=== PATIENT | female | born 1990 ===

== ENCOUNTER 2017-04-19 12:37 | Observation (INO) ==
[2017-04-19] MEDS ORDERED: SODIUM CHLORIDE 0.9% 1,000 ML IV STA (12:48)
--- NOTE | 2017-04-19 13:44 | Ultrasound Report ---
History: Vaginal bleeding. Date: 04/19/2017 Study: Obstetrical ultrasound greater than 14 weeks Comparison exam: No previous Verbal report was given to Dr. Kuo by telephone at approximately 1:30 PM. Real-time ultrasound images are captured and archived. There is a single intrauterine fetus in vertex presentation with heart rate of 149 bpm. There is a low-lying placenta which is posterior. The cervical canal is open and measures roughly 16 mm. There is a 6.2 x 3.2 area of echogenicity in the vaginal vault which presumably represents a large area of clot within the vaginal vault. This area of echogenicity is isoechoic to the placenta, though there is no definite continuity between the placenta and this vaginal echogenicity. There is a normal amount of amniotic fluid with a largest pocket of 42 mm. spine, four-chamber heart view, stomach bubble, kidneys, and cord insertion site are identified and appear normal. The urinary bladder is not demonstrated. There are no masses of the maternal myometrium. The maternal ovaries are not seen, though there is no mass in the maternal adnexal area. BPD 33 mm or 16 weeks 1 days Head circumference 124 mm or 16 weeks 2 days Abdominal circumference 99 mm are 16 weeks 0 days Femur length 18 mm or 15 weeks 2 days The fetus measures in the 77.6 percentile Impression: Single intrauterine fetus in vertex presentation with an ultrasound gestational age of 15 weeks 5 days +/- 8 days, DENNIS October 06, 2017, and EFW 132 g +/- 19 g. motion and cardiac activity are noted during real-time sonography Incompetent cervix. Area of focal increased echogenicity in the vaginal vault which may represent large area of clot Low-lying placenta PROCEDURE INTERPRETED AT [facility] DEPARTMENT OF RADIOLOGY Final Report Signed by: Dr. Sherrie Patterson
[2017-04-19 13:50] LABS: Eosinophils % 0.1 % (0.00-10.9); Hematocrit 24.2 VOL% (35.7-47.0); Hemoglobin 8.4 GM/DL (12.0-16.0); Immature Granulocytes % 0.7 %; Immature Granulocytes Absolute 0.06 #; Lymphocytes # 0.8 10*3/uL (1.4-4.0); Lymphocytes % 9.2 % (21.3-54.2); Mean Corpuscular HGB Conc 34.7 GM/DL (32-36); Mean Corpuscular Hemoglobin 32 PG (27-34); Mean Corpuscular Volume 93.1 FL (87-102); Mean Platelet Volume 8.9 FL (9.6-12.0); Monocytes # 0.6 10*3/uL (0.11-0.8); Monocytes % 6.7 % (1.7-12.7); Neutrophils # 6.9 10*3/uL (1.4-7.4); Neutrophils % 83.3 % (38.7-73.9); Platelet Count 170 T/CUMM (130-400); Red Cell Distribution Width 13.8 % (9.3-17.3); White Blood Count 8.3 T/CUMM (4-12)
--- NOTE | 2017-04-19 13:52 | Emergency Department Note ---
Karl Howell Brittany, am scribing for, and in the presence of, George Kuo MD 12:52. Shiela Howell Thomas, MD, personally performed the services described in this documentation, ascribed by Diane Barajas in my presence, and it is both accurate and complete 351 . Arrival - Arrival Stated Complaint: VAGINAL BLEEDING Mode of Arrival: Ambulatory Limitations: No Limitations Source: Patient, RN Notes Reviewed Time Seen by Provider: 04/19/17 12:42 - History of Present Illness HPI Narrative: Patient is a 26 y/o female presenting to the ED with c/o vaginal bleeding which onset this morning. Patient reports that she has had some associated chills, suprapubic abdominal pain, nausea, diarrhea, and urinary frequency. She describes noticing this bleeding most often upon urination, but on exam patient has dried blood splatters to bilateral lower extremities. Patient currently is 3 months gestation. She denies having had any cough, fever, chest pain, runny nose, rash, or dysuria. Patient denies sustaining any recent injury or trauma to the vaginal region. She denies having any other complaints. Nothing improves/ worsens Sx. Onset (ago): hour(s) Consistency: constant Allergies/Adverse Reactions: Allergies Allergy/AdvReac Type Severity Reaction Status Date / Time No Known Allergies Allergy Verified 07/15/15 22:15 Home Medications: Home Medications Medication Instructions Recorded Confirmed Type No122/Iron/Folic Acid 1 each PO QPM 04/19/17 04/19/17 History [ Multi Tablet] Review of System - Review of System 12 point system: reviewed and no additional remarkable complaints except as stated - Review of System Constitutional: Present: chills. Absent: fever Cardiovascular: Absent: chest pain, dyspnea on exertion Gastrointestinal: Present: abdominal pain, nausea, diarrhea. Absent: vomiting Genitourinary female: Present: frequency, other (vaginal bleeding). Absent: dysuria Skin: Absent: rash, change in color Medical,Surgical,& Family Hx - Medical History Reproductive: History of: Sexually Transmitted Disorders (TRICH) No history of: Ectopic , Complication - Surgical History Reproductive Surgeries: Patient denies;: Section, Hysterectomy, Tubal Ligation - Family History Family History: Reports;: Family Diabetes Denies;: Family Anesthesia Reaction, Family Cancer, Family Heart Disease, Family Hypertension, Family Psychiatric Problems, Family Stroke - Social History Smoking Status: Never smoker Exam Vital Signs: Vital Signs Temperature 98.6 F 04/19/17 12:38 Pulse Rate 86 04/19/17 12:38 Respiratory Rate 18 04/19/17 12:38 Blood Pressure 106/42 04/19/17 12:38 O2 Sat by Pulse Oximetry 100 04/19/17 13:02 - General General appearance: alert, in no apparent distress - Head Head exam: Present: atraumatic, normocephalic - Eye Eye exam: Present: EOMI. Absent: conjunctival injection, periorbital swelling, periorbital tenderness - ENT ENT exam: Present: mucous membranes moist - Neck Neck exam: Present: trachea midline - Chest Chest inspection: Present: symmetric chest wall rise - Respiratory Respiratory exam: Present: normal lung sounds bilaterally. Absent: respiratory distress - Cardiovascular Cardiovascular exam: Present: regular rate, normal rhythm, normal heart sounds - Abdominal Exam Abdominal exam: Present: soft, normal bowel sounds. Absent: distention, tenderness, guarding - Extremities Exam Extremities exam: Present: normal capillary refill. Absent: pedal edema, calf tenderness - Back Exam Back exam: Absent: CVA tenderness (R), CVA tenderness (L) - Neurological Exam Neurological exam: Present: alert, oriented X3. Absent: motor sensory deficit - Psychiatric Psychiatric exam: Present: normal affect, normal mood - Skin Skin exam: Present: warm, dry, normal color, other (dried blood noted to bilateral lower extremeties) Course - Consultations Consultation #1: Dr. Rutledge will admit patient for observation. She will come to the ER and see the patient. Time: 14:52 Results - Labs CBC & BMP: 04/19/17 13:39 04/19/17 13:39 Lab Results: I have reviewed the patients labs Labs: Laboratory Tests 04/19/17 13:39 WBC 8.3 RBC 2.60 L Hgb 8.4 L Hct 24.2 L Plt Count 170 MPV 8.9 L Neut % (Auto) 83.3 H Lymph % (Auto) 9.2 L Lymph # (Auto) 0.8 L Laboratory Tests 04/19/17 13:39 Serum , Qual Positive Laboratory Tests 04/19/17 13:39 INR 1.0 PT Patient/Control Mix 10.9 Circ Anticoag PTT 28.6 Laboratory Tests 04/19/17 13:39 Sodium 139 Potassium 4.2 Chloride 110 H Carbon Dioxide 23 BUN 4 L Creatinine 0.40 L Glucose 93 Calcium 7.2 L ALT 12 L Alkaline Phosphatase 30 L Total Protein 5.3 L Albumin 2.5 L Albumin/Globulin Ratio 0.8 L Laboratory Tests 04/19/17 13:39 Blood Type O POSITIVE Antibody Screen Negative - Diagnostic Findings Procedure: Ultrasound: report reviewed by me ( US: Single intrauterine fetus in vertex presentation with an ultrasound gestational age of 15 weeks 5 days +/- 8 days, DENNIS October 06, 2017, and EFW 132 g +/- 19 g. motion and cardiac activity are noted during real-time sonography. Incompetent cervix. Area of focal increased echogenicity in the vaginal vault which may represent large area of clot. Low-lying placenta.) Disposition Clinical Impression: Vaginal bleeding before 22 weeks gestation, Second trimester , Anemia , Incompetence of cervix uteri Case discussed with: patient, other Disposition: Still a Patient Condition: Stable Time of Disposition: 14:57
[2017-04-19 14:07] LABS: PT Patient Result 10.9 SECS; Partial Thromboplastin Time 28.6 SECS (0-40)
[2017-04-19 14:13] LABS: Albumin 2.5 G/DL (3.4-5.0); Bilirubin,Total 0.6 MG/DL (0.2-1.0); Calcium 7.2 MG/DL (8.5-10.1); Osmolality,Calculated 273.5 MOS/KG (273-304); Potassium 4.2 MMOL/L (3.5-5.1); Total Protein 5.3 G/DL (6.4-8.3)
[2017-04-19 14:56] LABS: Apearance,Urine Slightly Hazy (Clear); Bilirubin,Urine Negative (Negative); Blood, Urine Negative (Negative); Glucose,Urine (UA) Negative (Negative); Hyaline Casts,Urine 1 /LPF (0-3); Ketones,Urine Negative (Negative); Nitrite,Urine Negative (Negative); Protein,Urine 30 MG/DL; RBC,Urine <1 /HPF (0-4); Squamous Epithelial Cell,Urine Occasional /HPF (0-10); Urine Color Yellow (Yellow); WBC,Urine 1 /HPF (0-6)
[2017-04-19] MEDS ORDERED: ONDANSETRON 4 MG/2 ML VIAL IV PRN (16:48)
[2017-04-19] MEDS ORDERED: SODIUM CHLORIDE 0.9% 250 ML IV PRN (16:53)
[2017-04-19] MEDS: ACETAMINOPHEN/CODEINE 300-30 MG TABLET PO PRN (17:00)
[2017-04-19] MEDS: MEPERIDINE 50 MG/1 ML VIAL IV PRN (20:59)
[2017-04-19] MEDS: LACTATED RINGERS 1,000 ML IV SCH (21:05)
[2017-04-19 22:51] LABS: Hematocrit 25.8 VOL% (35.7-47.0); Hemoglobin 9.2 GM/DL (12.0-16.0)
[2017-04-20] MEDS: MEPERIDINE 50 MG/1 ML VIAL IV PRN ×4 (03:42→21:12)
[2017-04-20 05:12] LABS: Basophils % 0.2 % (0.0-0.8); Eosinophils # 0.1 10*3/uL (0.0-0.87); Eosinophils % 1.2 % (0.00-10.9); Hematocrit 25.4 VOL% (35.7-47.0); Hemoglobin 8.7 GM/DL (12.0-16.0); Immature Granulocytes % 0.4 %; Immature Granulocytes Absolute 0.02 #; Lymphocytes # 1.1 10*3/uL (1.4-4.0); Lymphocytes % 22.7 % (21.3-54.2); Mean Corpuscular HGB Conc 34.3 GM/DL (32-36); Mean Corpuscular Hemoglobin 32 PG (27-34); Mean Platelet Volume 8.6 FL (9.6-12.0); Monocytes # 0.5 10*3/uL (0.11-0.8); Monocytes % 9.7 % (1.7-12.7); Neutrophils # 3.2 10*3/uL (1.4-7.4); Neutrophils % 65.8 % (38.7-73.9); Platelet Count 132 T/CUMM (130-400); Red Blood Count 2.76 MC/CUMM (3.8-5.5); Red Cell Distribution Width 15.1 % (9.3-17.3); White Blood Count 4.9 T/CUMM (4-12)
--- NOTE | 2017-04-20 10:27 | Ultrasound Report ---
History: Vaginal bleeding Date: 04/20/2017 Study: Obstetrical ultrasound follow-up Comparison exam: 04/19/2017 Real-time ultrasound images are captured and archived. There is a single intrauterine fetus in vertex presentation with a heart rate of 161 bpm. The placenta is posterior and low-lying/marginal previa by translabial measurements. The cervical canal is closed. The cervix measures 1.8 cm on today's study. The large area of increased echogenicity in the vaginal vault noted on the previous study, presumably clot, is not seen on the current study. There is a normal amount of amniotic fluid with a largest vertical pocket of 40 mm. The maternal ovaries are not demonstrated. anatomic survey was not performed. Impression: Single intrauterine fetus in vertex presentation with cardiac activity. The placenta is posterior and low-lying/marginal previa. The maternal cervix is closed and measures 1.8 cm. The large echogenic structure in the vaginal vault seen on the previous study, presumably thrombus, is no longer seen. PROCEDURE INTERPRETED AT [facility] DEPARTMENT OF RADIOLOGY Final Report Signed by: Dr. Sherrie Patterson
--- NOTE | 2017-04-20 10:59 | History & Physical Report ---
Assessment and Plan (1) Vaginal bleeding before 22 weeks gestation Status: Acute Assessment and plan: Bedrest, replaced blood loss, comfort measures, risks were thoroughly discussed with this patient as well. And will have follow-up ultrasounds as needed. Once the bleeding is stopped we will then do a vaginal examination to assess whether or not this patient needs to have a cerclage placement. Current Visit: Yes History of Present Illness Chief complaint: Vaginal bleeding History of present illness: Ms. Gerardo is a 26 year old female Patient admitted with heavy vaginal bleeding passing large clots, no abdominal pain or discomfort at this particular time. heart tones were present. Ultrasound was obtained demonstrated intrauterine with heart rate greater than 140, estimated gestational age of 16 weeks and 2 days. This patient will be admitted to H&H will be obtained ultrasound repeated in the a.m. Will place to complete bedrest. Risks and benefits were thoroughly discussed with this patient about the possible of an impending miscarriage versus placenta abruption, placenta previa, or blood leading after intimacy. Home Medications Medication Instructions Recorded Confirmed Type Ferrous Sulfate 1 tablet PO BID 04/19/17 04/19/17 History No122/Iron/Folic Acid 1 each PO QPM 04/19/17 04/19/17 History [ Multi Tablet] Allergies Allergy/AdvReac Type Severity Reaction Status Date / Time No Known Allergies Allergy Verified 07/15/15 22:15 Medical,Surgical,& Family Hx - Medical History Reproductive: History of: Sexually Transmitted Disorders (TRICH) No history of: Ectopic , Complication - Surgical History Reproductive Surgeries: Patient denies;: Section, Hysterectomy, Tubal Ligation - Family History Family History: Reports;: Family Diabetes Denies;: Family Anesthesia Reaction, Family Cancer, Family Heart Disease, Family Hypertension, Family Psychiatric Problems, Family Stroke - Social History Smoking Status: Never smoker Frequency of Alcohol Use: None Type of Drug Use: None Exam - Constitutional Vitals: Period Temp Pulse Resp BP Sys/Mckeon Pulse Ox Last 24 Hr 96.8 F-98.6 F 59-86 16-20 101-134/42-86 97-100 General appearance: mild distress - Head Head exam: Present: normal inspection - Eye Eye exam: Present: EOMI Pupils: Present: FÉLIX - ENT ENT exam: Present: normal exam - Neck Neck exam: Present: normal inspection - Respiratory Respiratory exam: Present: clear to auscultation bilaterally - Cardiovascular Cardiovascular exam: Present: regular rate and rhythm - GI/Abdominal GI/Abdominal exam: Present: normal bowel sounds, soft - Extremities Exam Extremities exam: Present: normal inspection - Back Exam Back exam: Present: normal inspection - Neurological Exam Neurological exam: Present: alert, oriented X3 - Psychiatric Psychiatric exam: Present: normal affect - Skin Skin exam: Present: normal color Results - Labs CBC & BMP: 04/20/17 05:00 04/19/17 13:39
[2017-04-20] MEDS: LACTATED RINGERS 1,000 ML IV SCH ×3 (13:45→21:15)
[2017-04-20 14:01] LABS: Hematocrit 28.7 VOL% (35.7-47.0); Hemoglobin 10.3 GM/DL (12.0-16.0)
[2017-04-21] MEDS: MEPERIDINE 50 MG/1 ML VIAL IV PRN ×2 (03:15→08:48)
[2017-04-21] MEDS: LACTATED RINGERS 1,000 ML IV SCH ×3 (04:45→14:37)
--- NOTE | 2017-04-21 13:53 | Progress Note ---
Assessment and Plan (1) Vaginal bleeding before 22 weeks gestation Status: Acute Assessment and plan: Bedrest, replaced blood loss, comfort measures, risks were thoroughly discussed with this patient as well. And will have follow-up ultrasounds as needed. Once the bleeding is stopped we will then do a vaginal examination to assess whether or not this patient needs to have a cerclage placement. Current Visit: Yes Family Medicine PN Sub Interval history: Niurka Valadez the patient was admitted over the last several days with vaginal bleeding. Ultrasound was obtained in the emergency room to stem is demonstrated intrauterine at approximately 16 weeks gestation. The cervix demonstrated a large clot in the vaginal vault. Repeat ultrasound after receiving 2 units of packed RBCs demonstrated no evidence of a clot in the vaginal vault and on all appearance of cervix appeared to be closed. heart tones again were obtained. Patient presently is only complaining of abdominal cramping. Pelvic exam was performed uterus is present with nontender but the cervix is long thick and closed. I have read recommended this patient to be off bed rest ambulate observe her vaginal bleeding and if the bleeding is minimal then this patient should be discharged. These were discussed with this patient she is in full agreement Exam (Progress Note) - Constitutional Vitals: Period Temp Pulse Resp BP Sys/Mckeon Pulse Ox Last 24 Hr 96.5 F-98.6 F 71-81 16-20 113-134/66-87 97-99 Results - Labs CBC & BMP: 04/20/17 13:54 04/19/17 13:39 Specialty Discharge - Follow Up or Referrals Follow up with: Marylu Ruvalcaba MD [Physician] -
[2017-04-21] MEDS ORDERED: cefTRIAXone 1,000 MG in SODIUM CHLORIDE 0.9% 100 ML IV ONE (13:57)
[2017-04-21] MEDS: ACETAMINOPHEN/CODEINE 300-30 MG TABLET PO PRN ×2 (14:07→20:21)
[2017-04-22] MEDS: ACETAMINOPHEN/CODEINE 300-30 MG TABLET PO PRN ×2 (02:09→09:26)
[2017-04-22 11:08] VITALS: BP 115/78
--- NOTE | 2017-04-22 12:35 | Discharge Summary ---
Hospital Course - Hospital Course Hospital Course: Subjectively Patient is doing very well, no vaginal bleeding, no pelvic pain, positive heart tones noted Vital signs are stable afebrile Abdomen soft and nontender Perineum is dry no active bleeding noted Pelvic exam was performed on 21 April cervix was long thick and closed. Extremities well with no limits neurologic grossly intact Assessment plan Early second trimester bleeding apparently at this point time no active bleeding. This patient received 2 units of packed RBCs and is stable We will be discharged with ferrous sulfate and recommend bedrest Diagnosis - Discharge Diagnosis (1) Vaginal bleeding before 22 weeks gestation Status: Acute Specialty Discharge - Follow Up or Referrals Follow up with: Marylu Ruvalcaba MD [Physician] - Discharge Plan - Discharge Data Condition at Discharge: Stable Discharge Diet: advance to your usual diet Activity: increase activity as tolerated Hygiene: no restrictions Weight Bearing at Discharge: partial weight bearing Driving: no restrictions Contact your physician if you experience:: fever over 101, Bleeding - Discharge Medications New Acetamin/Codeine 300-30 Tab [Tylenol/Codeine #3] 2 tablet PO Q6H PRN #20 tablet PRN Reason: Pain Mild (1-3) Continue Ferrous Sulfate 1 tablet PO BID #60 No Action No122/Iron/Folic Acid [ Multi Tablet] 1 each PO QPM - Follow Up or Referral Follow Up: Marylu Ruvalcaba MD [Physician] - 2 Weeks ([facility]) - Forms/Instructions Instructions: Threatened Miscarriage (DC), Incompetent Cervix (GEN) Exam - Constitutional Vitals: Period Temp Pulse Resp BP Sys/Mckeon Pulse Ox Last 24 Hr 97.1 F-98.7 F 66-76 15-20 106-121/68-78 96-99 DS: Provider Date of admission: 04/19/17 14:55 Primary care physician: Myrtle Baltazar MD Attending physician on admission: Marylu Ruvalcaba MD Discharging clinician: Marylu Ruvalcaba MD
== END 2017-04-22 16:05 | disposition home or self-care (01) ==
LOC: EDBD → EDUNIT# → N.ED 12:37 → N.EDINP 14:55 → INTOOBSV 14:55 → N.OB 15:37
PROVIDERS: ADMIT Obstetrics & Gynecology; ATTEND Obstetrics & Gynecology

== ENCOUNTER 2017-05-17 02:27 | Inpatient (IN) ==
--- NOTE | 2017-05-17 02:38 | Emergency Department Note ---
Arrival - Arrival Chief Complaint: Urogenital - Female Stated Complaint: further eval vaginal bleeding during Time Seen by Provider: 05/17/17 02:35 - History of Present Illness HPI Narrative: This is a 26-year-old female of descent who presents from [facility] with vaginal bleeding for the past 2 weeks was heavy this evening. Expected date of confinement is October 10, 2017. She is . Ultrasound done in the emergency department reveals heart activity with movements. She is noted to have placenta previa. Cervical length is 3 cm. She is not actively bleeding in the emergency department. Her blood pressure is 106/61. The pulse is 67. Allergies/Adverse Reactions: Allergies Allergy/AdvReac Type Severity Reaction Status Date / Time No Known Allergies Allergy Verified 07/15/15 22:15 Home Medications: Home Medications Medication Instructions Recorded Confirmed Type No122/Iron/Folic Acid 1 each PO QPM 04/19/17 05/17/17 History [ Multi Tablet] Ferrous Sulfate 1 tablet PO BID #60 04/22/17 05/17/17 Rx Review of System - Review of System Constitutional: Absent: fever, night sweats, weakness Eyes: Absent: redness, vision change Respiratory: Absent: respiratory distress, wheezing Cardiovascular: Absent: dyspnea on exertion, orthopnea Gastrointestinal: Absent: diarrhea, constipation, hematemesis, melena Genitourinary female: Absent: dysuria, genital lesions Musculoskeletal: Absent: joint swelling, lower back pain, leg pain, neck pain Skin: Absent: change in color, change in hair/nails, pruritus Neurological: Absent: numbness Psychiatric: Absent: anxiety, depression Endocrine: Absent: heat intolerance, polydipsia, polyuria Hematological/Lymphatic: Absent: easy bruising, lymphadenopathy Allergic/Immunologic: Absent: urticaria, itchy eyes Medical,Surgical,& Family Hx - Medical History Reproductive: History of: Sexually Transmitted Disorders (TRICH) No history of: Ectopic , Complication - Surgical History Reproductive Surgeries: Patient denies;: Section, Hysterectomy, Tubal Ligation - Family History Family History: Reports;: Family Diabetes Denies;: Family Anesthesia Reaction, Family Cancer, Family Heart Disease, Family Hypertension, Family Psychiatric Problems, Family Stroke - Social History Smoking Status: Never smoker Exam Vital Signs: Vital Signs Temperature 98.7 F 05/17/17 02:29 Pulse Rate 63 05/17/17 04:15 Respiratory Rate 18 10/07/17 04:15 Blood Pressure 114/63 05/17/17 04:15 O2 Sat by Pulse Oximetry 100 05/17/17 04:15 - General General appearance: alert - Eye Eye exam: Present: PERRL, EOMI - ENT ENT exam: Present: normal exam - Neck Neck exam: Present: normal inspection, full ROM - Chest Chest inspection: Present: normal inspection - Respiratory Respiratory exam: Present: normal lung sounds bilaterally - Cardiovascular Cardiovascular exam: Present: regular rate, normal rhythm - Abdominal Exam Abdominal exam: Present: soft, normal bowel sounds - Extremities Exam Extremities exam: Present: normal inspection, full ROM - Back Exam Back exam: Present: normal inspection, full ROM - Neurological Exam Neurological exam: Present: alert, oriented X3, CN II-XII intact - Psychiatric Psychiatric exam: Present: normal affect, normal mood - Skin Skin exam: Present: warm, dry Course Course Narrative: The case was discussed with Dr. Ruvalcaba the ROOFING TECHNICIAN doctor with the ultrasound findings that show placenta previa and a 2 g drop in her hemoglobin. Dr. Ruvalcaba agreed to admit the patient to the hospital for possible blood transfusion and to monitor the vaginal bleeding. Results - Labs CBC & BMP: 05/17/17 02:44 05/17/17 02:44 Disposition Clinical Impression: Placenta previa antepartum in second trimester Disposition: Still a Patient
[2017-05-17 02:58] LABS: Basophils % 0.3 % (0.0-0.8); Eosinophils # 0.1 10*3/uL (0.0-0.87); Eosinophils % 1.1 % (0.00-10.9); Hematocrit 21.6 VOL% (35.7-47.0); Hemoglobin 7.4 GM/DL (12.0-16.0); Immature Granulocytes % 0.4 %; Immature Granulocytes Absolute 0.03 #; Lymphocytes # 2.3 10*3/uL (1.4-4.0); Lymphocytes % 30.2 % (21.3-54.2); Mean Corpuscular HGB Conc 34.3 GM/DL (32-36); Mean Corpuscular Hemoglobin 32 PG (27-34); Mean Corpuscular Volume 92.3 FL (87-102); Mean Platelet Volume 9.1 FL (9.6-12.0); Monocytes # 0.5 10*3/uL (0.11-0.8); Monocytes % 6.9 % (1.7-12.7); Neutrophils # 4.6 10*3/uL (1.4-7.4); Neutrophils % 61.1 % (38.7-73.9); Platelet Count 235 T/CUMM (130-400); Red Blood Count 2.34 MC/CUMM (3.8-5.5); Red Cell Distribution Width 13.4 % (9.3-17.3); White Blood Count 7.5 T/CUMM (4-12)
[2017-05-17 03:20] LABS: Alanine Aminotransferase 11 U/L (13-56); Albumin 2.5 G/DL (3.4-5.0); Alkaline Phosphatase 45 U/L (45-117); Aspartate Amino Transferase 7 U/L (0-37); Bilirubin,Total < 0.39 MG/DL (0.2-1.0); Blood Urea Nitrogen 7 MG/DL (7-18); Calcium 7.9 MG/DL (8.5-10.1); Glucose 96 MG/DL (74-106); Osmolality,Calculated 280.1 MOS/KG (273-304); Potassium 3.2 MMOL/L (3.5-5.1); Sodium 142 MMOL/L (136-145); Total Protein 5.4 G/DL (6.4-8.3)
[2017-05-17] MEDS ORDERED: ONDANSETRON 4 MG/2 ML VIAL IV PRN (03:35)
[2017-05-17] MEDS ORDERED: DEXTROSE 5% LACTATED RINGERS 1,000 ML IV SCH (04:00)
[2017-05-17] MEDS ORDERED: SODIUM CHLORIDE 0.9% 250 ML IV PRN (04:51)
[2017-05-17] MEDS ORDERED: ACETAMINOPHEN/CODEINE 300-30 MG TABLET ONE (04:54)
[2017-05-17] MEDS: ACETAMINOPHEN/CODEINE 300-30 MG TABLET PO PRN ×4 (05:06→23:13)
[2017-05-17 06:17] LABS: Basophils % 0.1 % (0.0-0.8); Eosinophils # 0.1 10*3/uL (0.0-0.87); Eosinophils % 1.2 % (0.00-10.9); Hematocrit 21.5 VOL% (35.7-47.0); Hemoglobin 7.1 GM/DL (12.0-16.0); Immature Granulocytes % 0.4 %; Immature Granulocytes Absolute 0.03 #; Lymphocytes # 2.4 10*3/uL (1.4-4.0); Lymphocytes % 36.2 % (21.3-54.2); Mean Corpuscular Hemoglobin 31 PG (27-34); Mean Corpuscular Volume 92.7 FL (87-102); Mean Platelet Volume 9.9 FL (9.6-12.0); Monocytes # 0.5 10*3/uL (0.11-0.8); Monocytes % 6.7 % (1.7-12.7); Neutrophils # 3.7 10*3/uL (1.4-7.4); Neutrophils % 55.4 % (38.7-73.9); Platelet Count 230 T/CUMM (130-400); Red Blood Count 2.32 MC/CUMM (3.8-5.5); Red Cell Distribution Width 13.7 % (9.3-17.3); White Blood Count 6.7 T/CUMM (4-12)
[2017-05-17 06:31] LABS: Apearance,Urine CLEAR (Clear); Bacteria,Urine Occasional /HPF (Few); Bilirubin,Urine Negative (Negative); Blood, Urine Small mg/dL (Negative); Glucose,Urine (UA) 50 mg/dL (Negative); Ketones,Urine Negative (Negative); Mucus,Urine Occasional /LPF (Occasional); Nitrite,Urine Negative (Negative); Protein,Urine 30 MG/DL; RBC,Urine 41 /HPF (0-4); Squamous Epithelial Cell,Urine Occasional /HPF (0-10); Urine Color Yellow (Yellow); Urine Specific Gravity 1.025 (1.001-1.035); WBC,Urine 3 /HPF (0-6)
--- NOTE | 2017-05-17 08:26 | Ultrasound Report ---
Exam: US OB >= 14 weeks fetus Indication: Vaginal bleeding Comparison: April 20, 2017 Findings: Intrauterine gestation in the breech position. Posterior placenta. Three-vessel cord BPD: 19 weeks 3 days Head circumference: 19 weeks 1 day Abdominal circumference: 19 weeks 2 days Femur length: 18 weeks 4 days Amniotic fluid index: Normal at 12.4 cm Estimated weight: 270 g Cervical length: 3.0 cm heart rate: 1 48 bpm structures: No gross abnormality. Unremarkable appearance of the spine, kidneys and bladder. Four-chamber heart. Maternal ovaries not visualized Ultrasound images were captured and stored. Impression: 1. Expected progression of viable intrauterine gestation with estimated age of 18 weeks 5 days with expected delivery date of October 13, 2017. PROCEDURE INTERPRETED AT [facility] DEPARTMENT OF RADIOLOGY Final Report Signed by: Dylan Ramirez MD
--- NOTE | 2017-05-17 08:27 | OB/GYN History & Physical ---
History of Present Illness Chief complaint: Questionable vaginal bleed History of present illness: Ms. Gerardo is a 26 year old female 26-year-old 5 para 4 EDC is October 14, 2017, approximately 19 weeks and 1 day gestation. Who presented from [facility] with which was "" excessive vaginal bleeding and pelvic pain. Patient was evaluated and was determined to have tachycardia and also a low hemoglobin and hematocrit. She was then transferred by ambulance to [facility] and be evaluated in emergency room. Upon arrival in the emergency room there was no evidence of vaginal bleeding or severe abdominal pain. Ultrasound was obtained demonstrated a viable intra-uterine with a documented placenta previa. Patient received IV fluids, typed and crossed for 2 units packed RBCs and will planning on to transfuse this patient with each unit over period of time. Being evaluated for several hours is no evidence of any vaginal bleeding , and also no excessive abdominal pain or discomfort. Home Medications Medication Instructions Recorded Confirmed Type No122/Iron/Folic Acid 1 each PO QPM 04/19/17 05/17/17 History [ Multi Tablet] Ferrous Sulfate 1 tablet PO BID #60 04/22/17 05/17/17 Rx Allergies Allergy/AdvReac Type Severity Reaction Status Date / Time No Known Allergies Allergy Verified 07/15/15 22:15 Medical,Surgical,& Family Hx - Medical History Reproductive: History of: Sexually Transmitted Disorders (TRICH) No history of: Ectopic , Complication - Surgical History Reproductive Surgeries: Patient denies;: Section, Hysterectomy, Tubal Ligation - Family History Family History: Reports;: Family Diabetes Denies;: Family Anesthesia Reaction, Family Cancer, Family Heart Disease, Family Hypertension, Family Psychiatric Problems, Family Stroke - Social History Smoking Status: Never smoker Frequency of Alcohol Use: None 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 of 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: 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 - Constitutional Vitals: Vital Signs Temp Pulse Pulse Resp BP BP BP 05/17/17 08:00 97.2 F L 58 L 16 96/61 05/17/17 07:56 97.2 F L 58 L 16 96/61 05/17/17 07:26 97.0 F L 56 L 16 91/52 05/17/17 07:21 96.9 F L 57 L 18 94/55 05/17/17 07:16 97 F L 61 16 95/52 05/17/17 07:10 97.2 F L 58 L 16 98/63 05/17/17 06:56 18 05/17/17 06:00 18 05/17/17 04:30 97.3 F L 70 16 110/63 05/17/17 04:15 63 18 114/63 05/17/17 02:29 98.7 F 67 18 106/61 Pulse Ox Pulse Ox 05/17/17 08:00 96 05/17/17 07:56 05/17/17 07:26 05/17/17 07:21 97 05/17/17 07:16 95 05/17/17 07:10 96 05/17/17 06:56 05/17/17 06:00 05/17/17 04:30 98 05/17/17 04:15 100 05/17/17 02:29 100 General appearance: no acute distress - Head Head exam: Present: normal inspection - Eye Eye exam: Present: EOMI Pupils: Present: FÉLIX - ENT ENT exam: Present: normal exam - Neck Neck exam: Present: normal inspection - Respiratory Respiratory exam: Present: clear to auscultation bilaterally - Breast Breasts: as per HPI Menstruation: as per HPI - Cardiovascular Cardiovascular exam: Present: regular rate and rhythm - GI/Abdominal GI/Abdominal exam: Present: normal bowel sounds, other - Extremities Exam Extremities exam: Present: normal inspection - Back Exam Back exam: Present: normal inspection - Neurological Exam Neurological exam: Present: alert - Psychiatric Psychiatric exam: Present: normal affect - Skin Skin exam: Present: normal color Assessment and Plan (1) Vaginal bleeding before 22 weeks gestation Status: Acute Assessment and plan: Known history of a placenta previa, no active bleeding at this time, anemia. Our plan is to transfuse this patient repeat the hemoglobin and hematocrit, repeat the ultrasound and assess whether or not this patient to be determined home at tablet bed rest. Current Visit: No Results - Labs CBC & BMP: 05/17/17 05:37 05/17/17 02:44 Quality Measures - VTE Contraindication to Pharmacological VTE Prophylaxis: High Risk of Bleeding
[2017-05-17 14:19] LABS: Basophils % 0.2 % (0.0-0.8); Eosinophils # 0.1 10*3/uL (0.0-0.87); Eosinophils % 1.3 % (0.00-10.9); Hematocrit 25.4 VOL% (35.7-47.0); Hemoglobin 8.7 GM/DL (12.0-16.0); Immature Granulocytes % 0.6 %; Immature Granulocytes Absolute 0.03 #; Lymphocytes # 1.9 10*3/uL (1.4-4.0); Lymphocytes % 35.4 % (21.3-54.2); Mean Corpuscular HGB Conc 34.3 GM/DL (32-36); Mean Corpuscular Hemoglobin 31 PG (27-34); Mean Corpuscular Volume 90.7 FL (87-102); Mean Platelet Volume 9.2 FL (9.6-12.0); Monocytes # 0.4 10*3/uL (0.11-0.8); Monocytes % 7.6 % (1.7-12.7); Neutrophils # 2.9 10*3/uL (1.4-7.4); Neutrophils % 54.9 % (38.7-73.9); Platelet Count 212 T/CUMM (130-400); White Blood Count 5.3 T/CUMM (4-12)
[2017-05-18] MEDS: ACETAMINOPHEN/CODEINE 300-30 MG TABLET PO PRN ×4 (07:45→22:00)
[2017-05-19] MEDS: ACETAMINOPHEN/CODEINE 300-30 MG TABLET PO PRN ×3 (03:47→14:07)
[2017-05-19 07:32] LABS: Basophils % 0.2 % (0.0-0.8); Eosinophils # 0.1 10*3/uL (0.0-0.87); Eosinophils % 1.8 % (0.00-10.9); Hemoglobin 9.5 GM/DL (12.0-16.0); Immature Granulocytes % 0.5 %; Immature Granulocytes Absolute 0.03 #; Lymphocytes # 2.2 10*3/uL (1.4-4.0); Mean Corpuscular HGB Conc 33.9 GM/DL (32-36); Mean Corpuscular Hemoglobin 31 PG (27-34); Mean Platelet Volume 9.5 FL (9.6-12.0); Monocytes # 0.5 10*3/uL (0.11-0.8); Monocytes % 8.2 % (1.7-12.7); Neutrophils # 3.1 10*3/uL (1.4-7.4); Neutrophils % 52.3 % (38.7-73.9); Platelet Count 242 T/CUMM (130-400); Red Blood Count 3.11 MC/CUMM (3.8-5.5); Red Cell Distribution Width 13.9 % (9.3-17.3)
[2017-05-19 07:50] VITALS: BP 116/69
[2017-05-19] MEDS ORDERED: MULTIVITAMIN (PRENATAL) TABLET PO SCH (09:00)
--- NOTE | 2017-05-19 09:49 | Discharge Summary ---
Hospital Course - Hospital Course Hospital Course: Third day of hospitalization Patient was admitted with vaginal bleeding from the [facility]. Apparently this patient has had some vaginal spotting in and had passed a large clot. Her H&H in the emergency room was 7 g of hemoglobin she was slightly tachycardic. Ultrasound demonstrated placenta previa. Great cardiac activity noted with the fetus. Patient was hydrated and also administered 2 units of packed RBCs over 24. At time. She remained in the hospital over this period of time and no excessive active bleeding. Presently has a small brownish discharge she is not having noticeable pain discomfort on examination. However patient is requesting pain medicine whenever the time is scheduled. Her physical exam is essentially unremarkable, her she appears appropriate and during her examination is not wincing with pain or or complaints. Patient will be discharged on advised for bed rest because of previa, no sexual activity, and no heavy lifting lifting. Discharge on iron therapy and also Tylenol 3 with no refills. Diagnosis - Discharge Diagnosis (1) Vaginal bleeding before 22 weeks gestation Status: Acute Discharge Plan - Discharge Data Condition at Discharge: Stable Discharge Diet: advance to your usual diet Activity: resume usual activities as tolerated Hygiene: may shower Weight Bearing at Discharge: partial weight bearing Driving: not until seen by doctor Contact your physician if you experience:: fever over 101, Bleeding - Discharge Medications New Acetamin/Codeine 300-30 Tab [Tylenol/Codeine #3] 2 tablet PO Q4H PRN #30 tablet PRN Reason: Pain Mild (1-3) Continue Ferrous Sulfate 1 tablet PO BID #60 No Action No122/Iron/Folic Acid [ Multi Tablet] 1 each PO QPM - Follow Up or Referral - Forms/Instructions Exam - Constitutional Vitals: Period Temp Pulse Resp BP Sys/Mckeon Pulse Ox Last 24 Hr 97 F-98.7 F 66-74 16-20 98-116/55-69 98-100 Discharge Results Labs on day of discharge: Labs from last 24 hours 05/19/17 07:17 WBC 6.0 RBC 3.11 L Hgb 9.5 L Hct 28.0 L MCV 90.0 MCH 31 MCHC 33.9 RDW 13.9 Plt Count 242 MPV 9.5 L Neut % (Auto) 52.3 Lymph % (Auto) 37.0 Hill % (Auto) 8.2 Eos % (Auto) 1.8 Baso % (Auto) 0.2 Neut # (Auto) 3.1 Lymph # (Auto) 2.2 Hill # (Auto) 0.5 Eos # (Auto) 0.1 Baso # (Auto) 0.0 Immature Gran % 0.5 Nucleated RBC % 0.0 Immature Gran # 0.03 Nucleated RBCs # 0.00 Immature Plt Fraction 0.0 DS: Provider Date of admission: 05/17/17 03:35 Primary care physician: Myrtle Baltazar MD Attending physician on admission: Marylu Ruvalcaba MD Discharging clinician: Marylu Ruvalcaba MD
[2017-05-19] MEDS ORDERED: INFLUENZA VIRUS VACCINE 0.5 ML SYRINGE IM ONE (11:05)
== END 2017-05-19 16:10 | disposition home or self-care (01) | DRG 566 ==
LOC: EDBD → EDUNIT# → N.ED 02:27 → N.OB 03:35
PROVIDERS: ADMIT Obstetrics & Gynecology; ATTEND Obstetrics & Gynecology

== ENCOUNTER 2017-05-24 15:31 | Inpatient (IN) ==
[2017-05-24] MEDS ORDERED: ONDANSETRON 4 MG/2 ML VIAL IV PRN ×2 (15:51→18:02)
[2017-05-24] MEDS ORDERED: SODIUM CHLORIDE 0.9% 1,000 ML IV STA (15:51)
[2017-05-24 16:44] LABS: Basophils % 0.2 % (0.0-0.8); Eosinophils % 0.1 % (0.00-10.9); Hematocrit 23.4 VOL% (35.7-47.0); Hemoglobin 7.9 GM/DL (12.0-16.0); Immature Granulocytes % 0.4 %; Immature Granulocytes Absolute 0.04 #; Lymphocytes # 1.1 10*3/uL (1.4-4.0); Lymphocytes % 12.4 % (21.3-54.2); Mean Corpuscular HGB Conc 33.8 GM/DL (32-36); Mean Corpuscular Hemoglobin 31 PG (27-34); Mean Corpuscular Volume 90.3 FL (87-102); Mean Platelet Volume 8.6 FL (9.6-12.0); Monocytes # 0.3 10*3/uL (0.11-0.8); Monocytes % 2.8 % (1.7-12.7); Neutrophils # 7.6 10*3/uL (1.4-7.4); Neutrophils % 84.1 % (38.7-73.9); Platelet Count 325 T/CUMM (130-400); Red Blood Count 2.59 MC/CUMM (3.8-5.5); Red Cell Distribution Width 13.3 % (9.3-17.3); White Blood Count 9.1 T/CUMM (4-12)
[2017-05-24 16:52] LABS: PT Patient Result 10.7 SECS; Partial Thromboplastin Time 28.9 SECS (0-40)
[2017-05-24 17:33] LABS: Alanine Aminotransferase 11 U/L (13-56); Albumin 2.5 G/DL (3.4-5.0); Alkaline Phosphatase 40 U/L (45-117); Aspartate Amino Transferase 7 U/L (0-37); Bilirubin,Total < 0.39 MG/DL (0.2-1.0); Blood Urea Nitrogen 8 MG/DL (7-18); Calcium 7.8 MG/DL (8.5-10.1); Glucose 96 MG/DL (74-106); Osmolality,Calculated 278.3 MOS/KG (273-304); Sodium 141 MMOL/L (136-145); Total Protein 5.6 G/DL (6.4-8.3)
[2017-05-24 17:59] LABS: Apearance,Urine Slightly Hazy (Clear); Bilirubin,Urine Negative (Negative); Blood, Urine Negative (Negative); Glucose,Urine (UA) 50 mg/dL (Negative); Hyaline Casts,Urine 6 /LPF (0-3); Ketones,Urine 5 mg/dL (Negative); Mucus,Urine Many /LPF (Occasional); Nitrite,Urine Negative (Negative); Protein,Urine 100 MG/DL; RBC,Urine 1 /HPF (0-4); Squamous Epithelial Cell,Urine Occasional /HPF (0-10); Urine Specific Gravity 1.025 (1.001-1.035); WBC,Urine 2 /HPF (0-6)
[2017-05-24 18:00] LABS: Urine Color Dark yellow (Yellow)
[2017-05-24] MEDS ORDERED: SODIUM CHLORIDE 0.9% 1,000 ML IV PRN (18:56)
[2017-05-24] MEDS: ACETAMINOPHEN/CODEINE 300-30 MG TABLET PO PRN (19:42)
[2017-05-25] MEDS: ACETAMINOPHEN/CODEINE 300-30 MG TABLET PO PRN ×3 (07:45→18:54)
[2017-05-25 08:02] LABS: Basophils % 0.3 % (0.0-0.8); Eosinophils # 0.1 10*3/uL (0.0-0.87); Eosinophils % 1.6 % (0.00-10.9); Hematocrit 24.4 VOL% (35.7-47.0); Hemoglobin 8.3 GM/DL (12.0-16.0); Immature Granulocytes % 0.4 %; Immature Granulocytes Absolute 0.03 #; Lymphocytes # 2.6 10*3/uL (1.4-4.0); Lymphocytes % 34.8 % (21.3-54.2); Mean Corpuscular Hemoglobin 31 PG (27-34); Mean Corpuscular Volume 91.4 FL (87-102); Monocytes # 0.6 10*3/uL (0.11-0.8); Neutrophils # 4.1 10*3/uL (1.4-7.4); Neutrophils % 54.9 % (38.7-73.9); Platelet Count 250 T/CUMM (130-400); Red Blood Count 2.67 MC/CUMM (3.8-5.5); Red Cell Distribution Width 13.4 % (9.3-17.3); White Blood Count 7.5 T/CUMM (4-12)
[2017-05-25] MEDS: FERROUS SULFATE 325 MG TABLET PO SCH ×2 (09:17→21:20)
[2017-05-25] MEDS: MULTIVITAMIN (PRENATAL) TABLET PO SCH (09:17)
[2017-05-25] MEDS ORDERED: SODIUM CHLORIDE 0.9% 250 ML IV PRN (10:07)
[2017-05-25] MEDS ORDERED: diphenhydrAMINE CAP 50 MG CAPSULE PO ONE (10:08)
[2017-05-25] MEDS ORDERED: ACETAMINOPHEN 500 MG TABLET PO ONE (10:08)
[2017-05-25] MEDS ORDERED: SODIUM CHLORIDE 0.9% 1,000 ML IV SCH (13:00)
[2017-05-26] MEDS: ACETAMINOPHEN/CODEINE 300-30 MG TABLET PO PRN ×4 (01:32→22:02)
[2017-05-26 05:17] LABS: Basophils % 0.4 % (0.0-0.8); Eosinophils # 0.1 10*3/uL (0.0-0.87); Eosinophils % 1.1 % (0.00-10.9); Hematocrit 29.7 VOL% (35.7-47.0); Hemoglobin 10.3 GM/DL (12.0-16.0); Immature Granulocytes % 0.5 %; Immature Granulocytes Absolute 0.04 #; Lymphocytes % 37.6 % (21.3-54.2); Mean Corpuscular HGB Conc 34.7 GM/DL (32-36); Mean Corpuscular Hemoglobin 31 PG (27-34); Mean Corpuscular Volume 89.5 FL (87-102); Mean Platelet Volume 8.8 FL (9.6-12.0); Monocytes # 0.6 10*3/uL (0.11-0.8); Monocytes % 7.7 % (1.7-12.7); Neutrophils # 4.2 10*3/uL (1.4-7.4); Neutrophils % 52.7 % (38.7-73.9); Platelet Count 249 T/CUMM (130-400); Red Blood Count 3.32 MC/CUMM (3.8-5.5); Red Cell Distribution Width 13.6 % (9.3-17.3)
[2017-05-26] MEDS: MULTIVITAMIN (PRENATAL) TABLET PO SCH (08:50)
[2017-05-26] MEDS: FERROUS SULFATE 325 MG TABLET PO SCH ×2 (08:50→22:02)
[2017-05-27] MEDS: MULTIVITAMIN (PRENATAL) TABLET PO SCH (09:49)
[2017-05-27] MEDS: FERROUS SULFATE 325 MG TABLET PO SCH (09:49)
[2017-05-27 10:55] VITALS: BP 103/55
[2017-05-27] MEDS: ACETAMINOPHEN/CODEINE 300-30 MG TABLET PO PRN (11:12)
== END 2017-05-27 11:45 | disposition hospice, home (50) | DRG 566 ==
LOC: EDBD → EDUNIT# → N.ED 15:31 → N.EDINP 18:01 → N.OB 18:45
PROVIDERS: ADMIT Obstetrics & Gynecology; ATTEND Obstetrics & Gynecology